=== PATIENT | female | born 1980 | race Caucasian/White ===

== ENCOUNTER 2016-03-21 17:40 | Emergency (ER) | payer OTHER ==
--- NOTE | 2016-03-21 18:02 | PDOC ---
History of Present Illness - General Chief Complaint: Urinary Problem Stated Complaint: r/o pyleonephritisKIDNEY PAIN Time Seen by Provider: 03/21/16 17:47 History Source: Patient Exam Limitations: No Limitations - History of Present Illness Travel History: No Timing/Duration: reports: intermittent Quality: reports: aching Abdominal Pain Onset Location: reports: flank (left) Pain Radiation: reports: no radiation Activities at Onset: reports: none Past History - Travel Traveled outside of the country in the last 30 days: No Close contact w/someone who was outside of country & ill: No - Past Medical History Allergies/Adverse Reactions: Allergies Allergy/AdvReac Type Severity Reaction Status Date / Time No Known Allergies Allergy Verified 03/21/16 17:41 Home Medications: Ambulatory Orders Hydrocortisone Acetate [Anusol Hc Suppository -] 25 mg RC DAILY #20 supp.rect Nitrofurantoin Monohyd/M-Cryst [Macrobid -] 100 mg PO BID #14 capsule 03/21/16 Asthma: Yes Disorders: Yes (kidney infections) - Immunization History Immunization Up to Date: Yes - Psycho/Social/Smoking Cessation Hx Anxiety: No Suicidal Ideation: No Smoking History: Never smoked Have you smoked in the past 12 months: No Number of Cigarettes Smoked Daily: 0 Cigars Per Day: 0 Information on smoking cessation initiated: No Hx Alcohol Use: No Drug/Substance Use Hx: No Substance Use Type: None *Physical Exam - Vital Signs Last Vital Signs Temp Pulse Resp BP Pulse Ox 98.6 F 91 H 18 117/74 100 03/21/16 17:43 03/21/16 17:43 03/21/16 17:43 03/21/16 17:43 03/21/16 17:43 ED Treatment Course - LABORATORY CBC & Chemistry Diagram: 03/21/16 17:00 03/21/16 17:00 *DC/Admit/Observation/Transfer Diagnosis at time of Disposition: UTI (urinary tract infection) Qualifiers: Urinary tract infection type: acute cystitis Hematuria presence: without hematuria Qualified Code(s): N30.00 - Acute cystitis without hematuria Cholelithiasis Qualifiers: Cholelithiasis location: gallbladder Cholecystitis presence: without cholecystitis Biliary obstruction: without biliary obstruction Qualified Code(s) : K80.20 - Calculus of gallbladder without cholecystitis without obstruction - Discharge Dispostion Disposition: HOME Condition at time of disposition: Improved Admit: No - Referrals Referrals: Kristy Marie MD [Primary Care Provider] - - Patient Instructions Printed Discharge Instructions: Urinary Tract Infection, DI for Gallstones Additional Instructions: Increase fluids Take tylenol/motrin as needed for pain Take antibiotics Follow up with your foam tank laminator or your PMD Return to the ER for severe/persistent/worsening symptoms
[2016-03-21 18:21] LABS: BASOPHIL 0.7 % (0-2.0); MCH 27.9 pg (25.7-33.7); MCHC 32.9 g/dl (32.0-36.0); MEAN CELL VOLUME 84.7 fl (80-96); MEAN PLT VOLUME 10.3 fl (7.5-11.1); NEUTROPHILS 83.1 % (42.8-82.8); PLATELET COUNT 184 K/MM3 (134-434); RDW 12.8 % (11.6-15.6); WHITE BLOOD COUNT 9.4 K/mm3 (4.0-10.0)
[2016-03-21 18:24] LABS: URINE APPEARANCE SLCLOUDY; URINE BILIRUBIN NEGATIVE (NEGATIVE); URINE COLOR YELLOW; URINE GLUCOSE (UA) NEGATIVE (NEGATIVE); URINE KETONE NEGATIVE (NEGATIVE); URINE NITRITE NEGATIVE (NEGATIVE); URINE PROTEIN NEGATIVE (NEGATIVE); URINE UROBILINOGEN NEGATIVE E.U./dl (0.2-1.0)
[2016-03-21 18:25] LABS: URINE BLOOD 3+ (NEGATIVE); URINE LEUK ESTERASE 1+ (NEGATIVE)
[2016-03-21 18:32] LABS: URINE BACTERIA RARE /hpf (NONE SEEN); URINE MUCUS RARE; URINE RBC 197 /hpf (0-3); URINE WBC 9 /hpf (3-5)
[2016-03-21 18:54] LABS: ALBUMIN 3.8 g/dl (3.4-5.0); ANION GAP 8 (8-16); BILIRUBIN,TOTAL 0.5 mg/dL (0.2-1.0); CALCIUM 8.2 mg/dL (8.5-10.1); CO2 25 mmol/L (21-32); CREATININE 0.6 mg/dL (0.55-1.02); GLUCOSE,RANDOM 93 mg/dL (74-106); SGOT/AST 13 U/L (15-37); SGPT/ALT 19 U/L (12-78)
[2016-03-21 18:55] LABS: ALK PHOS 92 U/L (45-117); TOT PROT 6.8 g/dl (6.4-8.2)
[2016-03-21 18:58] VITALS: BP 117/74; PULSE 91; TEMP 98.6; BMI 21.5
--- NOTE | 2016-03-21 19:20 | PDOC ---
*Physical Exam - Vital Signs Last Vital Signs Temp Pulse Resp BP Pulse Ox 98.6 F 91 H 18 117/74 100 03/21/16 17:43 03/21/16 17:43 03/21/16 17:43 03/21/16 17:43 03/21/16 17:43 ED Treatment Course - LABORATORY CBC & Chemistry Diagram: 03/21/16 17:00 03/21/16 17:00 - ADDITIONAL ORDERS Additional order review: Laboratory Results 03/21/16 03/21/16 17:00 17:00 Sodium 138 Potassium 3.7 Chloride 105 Carbon Dioxide 25 Anion Gap 8 BUN 8 D Creatinine 0.6 Creat Clearance w eGFR > 60 Random Glucose 93 Calcium 8.2 L Total Bilirubin 0.5 AST 13 L ALT 19 Alkaline Phosphatase 92 Total Protein 6.8 Albumin 3.8 Urine Color Yellow Urine Appearance Slcloudy Urine pH 7.0 Ur Specific [place] 1.018 Urine Protein Negative Urine Glucose (UA) Negative Urine Ketones Negative Urine Blood 3+ H Urine Nitrite Negative Urine Bilirubin Negative Urine Urobilinogen Negative Ur Leukocyte Esterase 1+ H Urine HCG, Qual Negative 03/21/16 17:00 RBC 4.73 MCV 84.7 MCHC 32.9 RDW 12.8 MPV 10.3 Neutrophils % 83.1 H D Lymphocytes % 9.4 D Monocytes % 5.8 Eosinophils % 1.0 D Basophils % 0.7 Medical Decision Making - Medical Decision Making 03/21/16 19:20 agree with care from RADHA Delgado *DC/Admit/Observation/Transfer Diagnosis at time of Disposition: UTI (urinary tract infection), Cholelithiasis - Discharge Dispostion Disposition: HOME Condition at time of disposition: Improved - Prescriptions Prescriptions: Nitrofurantoin Monohyd/M-Cryst [Macrobid -] 100 mg PO BID #14 capsule - Referrals Referrals: Kristy Marie MD [Primary Care Provider] - - Patient Instructions Printed Discharge Instructions: Urinary Tract Infection, DI for Gallstones Additional Instructions: Increase fluids Take tylenol/motrin as needed for pain Take antibiotics Follow up with your research affiliate or your PMD Return to the ER for severe/persistent/worsening symptoms
[2016-03-21] MEDS ORDERED: NITROFURANTOIN MACROCRYSTAL 50 MG CAPSULE (FP) PO SCH (19:45)
== END 2016-03-21 20:15 | disposition home or self-care (01) ==
LOC: JER 17:40 → JERFT 17:40
DX: N30.00 Acute cystitis without hematuria (principal); K80.20 Calculus of gallbladder without cholecystitis without obstruction; J45.909 Unspecified asthma, uncomplicated
CPT/HCPCS: 36415; 74176; 80053; 81003; 81015; 84703; 85025; 87086; 87186; 99281-25